=== PATIENT | male | born 1955 | race Caucasian/White ===

== ENCOUNTER 2021-06-09 19:23 | Inpatient (IN) | payer MEDICARE, OTHER ==
[~2021-06-09] VITALS: Ht 185.4 cm; Wt 93.0 kg
--- NOTE | 2021-06-09 21:00 | NUR ---
PATIENT IN ROOM A/OX3 CALM AND COOPERATIVE WITH NO DISTRESS NOTED. AMBULATORY WITH STEADY GAIT.
[2021-06-09] MEDS ORDERED: BENA1TAB18 PO (21:15)
[2021-06-09] MEDS ORDERED: DIVA250T4 PO (21:15)
[2021-06-09] MEDS ORDERED: OMEP20TA5 PO (21:15)
[2021-06-09] MEDS ORDERED: TRAV5DRO11 OP (21:15)
[2021-06-09] MEDS ORDERED: QUET50TA PO (21:15)
[2021-06-09] MEDS ORDERED: ASPI81TA31 PO (21:15)
--- NOTE | 2021-06-09 21:32 | NUR ---
MEDICALLY CLEARED BY DR PIERSON.
--- NOTE | 2021-06-09 22:37 | NUR ---
TRANSFERED TO [facility] VIA WHEELCHAIR WITH NO DISTRESS NOTED.
[2021-06-09] MEDS ORDERED: ACETAMINOPHEN 325 MG TABLET PO PRN (23:15)
[2021-06-09] MEDS ORDERED: LORAZEPAM 0.5 MG TABLET PO PRN (23:15)
[2021-06-09] MEDS ORDERED: MAGNESIUM HYDROXIDE 30 ML LIQUID UDC PO PRN (23:15)
[2021-06-09] MEDS ORDERED: MAG HYDROX/AL HYDROX/SIMETH 30 ML LIQUID UDC PO PRN (23:15)
[2021-06-09] MEDS ORDERED: BLOOD SUGAR DIAGNOSTIC 1 EACH STRIP VI ONE (23:15)
[2021-06-09] MEDS ORDERED: ZOLPIDEM 5 MG TABLET PO PRN (23:15)
[2021-06-09 23:32] VITALS: BP 124/62
--- NOTE | 2021-06-10 04:20 | NUR ---
2240--Received pt from ER in a safe and stable condition, alert/oriented x 3. Pt is on 5150 hold for GD. Pt denies any pain or discomfort at this time. Per hold, pt is here due to extreme emotional lability, decreased ability to meet his basic needs, increased agitation and having hallucinations. Upon assessment, pt is observed to be cooperative, have circumstantial thought process and flight of ideas. Pt denies SI, is able to contract for safety and interact appropriately with staff. Oriented pt to the unit and his room, assisted to a comfortable position. Pt's Rights Handbook and Advisement given. Safety precautions in place, q15 min checks done per unit protocol. Dr. Parkinson informed of admission; said he would do the med recon in the morning of 06/10/21. Will endorse accordingly and continue to monitor.
--- NOTE | 2021-06-10 06:10 | NUR ---
Daughter Uzma El informed of pt's admission to [facility]. Acknowledged information and agrees, no questions at this time. Expressed appreciation and said she would call the unit for any questions/concerns.
[2021-06-10 07:30] VITALS: BP 130/83
[2021-06-10 07:54] LABS: BILIRUBIN,TOTAL 0.7 mg/dL (0.2-1.0); CREATININE 1.3 mg/dL (0.6-1.3); POTASSIUM 4.1 mmol/L (3.5-5.1)
--- NOTE | 2021-06-10 09:15 | NUR ---
Firearms Report: Tray Setter completed and submitted a [employer] firearms report for 5150 grave disability certifications. A copy of report has been placed in patient chart.
--- NOTE | 2021-06-10 10:01 | NUR ---
Received pt. in bed fully AAOX4. vitals stable no c/of any discomfort fully ambulatory and follows commands. Will continue with care plan.
--- NOTE | 2021-06-10 10:35 | NUR ---
JAZZ Initial Discharge Plan: Patient resides at home [address] [place] [address]. Patient;s daughter, Ying El ([phone]) is also his DPOA is very involved in the patient's care. JAZZ will continue to work with patient, family, and MD to ensure a safe and proper discharge plan.
--- NOTE | 2021-06-10 10:35 | NUR ---
JAZZ Family Contact: JAZZ spoke with patient's daughter, Ying El ([phone]) who is also his DPOA is very involved in the patient's care. Ying stated that she is visiting assisted living facilities and custodial facilities for potential placement options for the patient. Ying stated the patient has been staying with her in her home in [place] for the past month as she has been helping manage his medications and doctor's visits. SW offered possible SNF facilities however discussed that they may not be in [facility] as they do not have any psych focused facilities. Ying is understanding and agreeable with this plan.
[2021-06-10] MEDS: ASPIRIN 81 MG TAB.CHEW PO SCH (11:28)
[2021-06-10 13:24] LABS: HEMATOCRIT 43.5 % (36.7-47.1); MEAN CORPUSCULAR HEMOGLOBIN 30.2 uug (23.8-33.4); PLATELET COUNT (AUTO) 127 K/uL (152-348)
[2021-06-10 16:00] VITALS: BP 113/65
[2021-06-10] MEDS: DIVALPROEX 250 MG TABLET.DR PO SCH (17:41)
[2021-06-10] MEDS: RIVAROXABAN 10 MG TABLET PO SCH (17:42)
--- NOTE | 2021-06-10 19:05 | NUR ---
left pt. on mikhail-chair. AAox1-2. vitals stable, no c/of pain. No aggressive behavior complain with meds.
[2021-06-10 20:14] VITALS: BP 117/68
[2021-06-10] MEDS: QUETIAPINE FUMARATE 25 MG TABLET PO SCH (20:21)
[2021-06-11] MEDS: PANTOPRAZOLE SODIUM 40 MG TABLET.DR PO SCH (06:36)
[2021-06-11 07:30] VITALS: BP 125/64
[2021-06-11] MEDS: DIVALPROEX 250 MG TABLET.DR PO SCH ×2 (08:42→17:28)
[2021-06-11] MEDS: ASPIRIN 81 MG TAB.CHEW PO SCH (08:42)
--- NOTE | 2021-06-11 15:41 | NUR ---
Gps/Respiratory Care Technician- Patient upset r/t copy of his 14 day hold, not explained to him, sludge control attendant Parvin , explained to patient ,verbalized understanding. Offered the need to shower , and was able to give own shower, somewhat needy , speech loud and angry tone of voice , demanding his needs.
[2021-06-11 16:00] VITALS: BP 131/61
[2021-06-11] MEDS: RIVAROXABAN 10 MG TABLET PO SCH (17:29)
--- NOTE | 2021-06-11 18:05 | NUR ---
Gps/Cleat Thrower- Irritability noted, wants his own way , reviewed pm meds. wants to take it with cranberry juice, telling staff to go and get it right away so he can take his medications .
[2021-06-11 20:00] VITALS: BP 119/68
[2021-06-11] MEDS: ATORVASTATIN 40 MG TABLET PO SCH (20:42)
[2021-06-11] MEDS: QUETIAPINE FUMARATE 25 MG TABLET PO SCH ×3 (20:42→20:46)
[2021-06-11] MEDS ORDERED: ATORVASTATIN 20 MG TABLET PO SCH ×2 (21:00)
--- NOTE | 2021-06-12 00:07 | NUR ---
RECEIVED PATIENT IN BED AWAKE.NOTED ISOLATIVE,WITHDRAWN AND MOOD LABILE. NOTED RESPONDING TO INTERNAL STIMULI HE KEPT BOTH HANDS ON HIS EARS FOR A WHILE.DISPLAYED SOME PARANOIA HE TOLD ME TO GET HIM CRANBERRY JUICE THAT HAS NOT BEEN "TAMPERED WITH OR POISONED'. HE LATER CAME RUNNING OUT OF HIS ROOM 2X TO THE ACTIVITY ROOM AND SAID" I WANT TO COOL DOWN". REFUSED HIS MEDICATIONS. RISK AND BENEFITS EXPLAINED X 3.VISUAL CHECKS MADE ON HIM FOR SAFETY. WILL CONTINUE TO MONITOR.
[2021-06-12] MEDS: PANTOPRAZOLE SODIUM 40 MG TABLET.DR PO SCH (06:15)
--- NOTE | 2021-06-12 06:17 | NUR ---
HE SLEPT FOR 7:15 HOURS. WOKE UP THIS MORNING CRYING AND APOLOGIZING FOR NOT TAKING HIS MEDICATIONS YESTERDAY.SPOKE ABOUT RISK AND BENEFITS.EXPRESSED UNDERSTANDING.
[2021-06-12 07:52] VITALS: BP 128/80
[2021-06-12] MEDS: DIVALPROEX 250 MG TABLET.DR PO SCH ×2 (09:10→17:39)
[2021-06-12] MEDS: ASPIRIN 81 MG TAB.CHEW PO SCH (09:10)
[2021-06-12] MEDS: RIVAROXABAN 10 MG TABLET PO SCH (17:49)
[2021-06-12 20:15] VITALS: BP 114/69
[2021-06-12] MEDS: ATORVASTATIN 40 MG TABLET PO SCH (20:41)
[2021-06-12] MEDS: QUETIAPINE FUMARATE 25 MG TABLET PO SCH (20:42)
[2021-06-13] MEDS: PANTOPRAZOLE SODIUM 40 MG TABLET.DR PO SCH (07:13)
[2021-06-13 07:34] VITALS: BP 116/69
[2021-06-13] MEDS: DIVALPROEX 250 MG TABLET.DR PO SCH ×2 (08:41→17:07)
[2021-06-13] MEDS: ASPIRIN 81 MG TAB.CHEW PO SCH (08:41)
[2021-06-13 16:43] VITALS: BP 107/65
[2021-06-13] MEDS: RIVAROXABAN 10 MG TABLET PO SCH (17:06)
[2021-06-13 20:00] VITALS: BP 116/60
[2021-06-13] MEDS: ATORVASTATIN 40 MG TABLET PO SCH (20:23)
[2021-06-13] MEDS: QUETIAPINE FUMARATE 25 MG TABLET PO SCH (20:24)
--- NOTE | 2021-06-13 21:30 | NUR ---
Received patient in his room. He is noted A/O x 1. Noted labile and unpredictable, with flight of ideas, pt does not make any sense. He initially took all his QHS medications but spited some out. He stated, "the water is dirty, i need more water". then he ran to the bathroom and sat in the toilet. patient was informed of the importance of complying with medication regiment to improved symptoms. he is reassured for his safety, safety an fall precaution in place. V/S stable, will continue to monitor.
[2021-06-14] MEDS: PANTOPRAZOLE SODIUM 40 MG TABLET.DR PO SCH (06:48)
[2021-06-14 07:30] VITALS: BP 120/77
[2021-06-14] MEDS: DIVALPROEX 250 MG TABLET.DR PO SCH ×2 (09:00→16:52)
[2021-06-14] MEDS: ASPIRIN 81 MG TAB.CHEW PO SCH (09:00)
--- NOTE | 2021-06-14 11:53 | NUR ---
Gps/Cocoa Press Operator- Showered self after set up, needed prompting and redirections, noted irritability when redirected, angry affect walks around briskly , body language stiff . staring , blunt answers . Monitor behavior.
[2021-06-14 16:00] VITALS: BP 114/63
[2021-06-14] MEDS: RIVAROXABAN 10 MG TABLET PO SCH (16:54)
[2021-06-14 19:58] VITALS: BP 118/64
[2021-06-14] MEDS: QUETIAPINE FUMARATE 25 MG TABLET PO SCH (20:16)
[2021-06-14] MEDS: ATORVASTATIN 40 MG TABLET PO SCH (20:17)
--- NOTE | 2021-06-14 20:23 | NUR ---
Received patient in his room in bed. he is noted awake A/O x 1. He continue suspicious, unpredictable, responding to internal stimuli, tangental, disorganized speech, Upon interview, he stated, "I feel fabulate. My daughter is coming right now to bring my medication. I don't hear voices, I have never heard voices. this is a joke". patient is reassured for his safety. safety and fall precaution in place. He was offered PO fluids and snacks. will continue to monitor closely.
[2021-06-15] MEDS: PANTOPRAZOLE SODIUM 40 MG TABLET.DR PO SCH (06:42)
--- NOTE | 2021-06-15 07:07 | NUR ---
PATIENT SLEPT FOR APPROX 7.30 HRS THROUGH THE NIGHT. HE WAS COMPLIANT WITH PROTONIX THIS MORNING. WILL CONTINUE TO MONITOR.
--- NOTE | 2021-06-15 07:15 | NUR ---
NURSE REPORT Obtained report from night nurse Rosanne and this nurse assumed care of patient. Received patient asleep at beginning of shift. No sxs of pain or distress. VSS. Afeb.
[2021-06-15 07:30] VITALS: BP 117/66
[2021-06-15] MEDS: DIVALPROEX 250 MG TABLET.DR PO SCH ×3 (09:17→17:16)
[2021-06-15] MEDS: ASPIRIN 81 MG TAB.CHEW PO SCH (09:17)
--- NOTE | 2021-06-15 12:00 | NUR ---
NURSE NOTES VSS. AFEB. MEALS TAKEN 75% AND 100% FOR LUNCH AND DINNER. EAT MEALS IN ROOM. NO C/O PAIN OR DISCOMFORT.
--- NOTE | 2021-06-15 12:09 | NUR ---
SPOKE WITH DR. SIDDIQI @[phone] FOR CONSULT PER REQUESTED, PER DR. SIDDIQI HE WILL SEE PATIENT TODAY.
--- NOTE | 2021-06-15 13:14 | NUR ---
JAZZ Family Contact: SW spoke with patient's daughter, Ying El ([phone]) and discussed updated treatment and discharge plan.
--- NOTE | 2021-06-15 14:54 | NUR ---
Court Hearing: Patient's court hearing for 5370 was today and it was upheld for GD.
[2021-06-15 15:07] VITALS: BP 115/65
[2021-06-15] MEDS: RIVAROXABAN 10 MG TABLET PO SCH ×2 (17:16→17:23)
--- NOTE | 2021-06-15 18:00 | NUR ---
NURSES CARE Patient might be pocketing his med, or act like he is taking his med. He c/o that the water is dirty and at first refused 1700 meds, but this nurse tried again and she says I need more water. He brought the cup of meds into the bathroom, and this nurse wasn't able to see him swallow the meds, since bathroom door closed. Need to monitor patient when he takes meds.
--- NOTE | 2021-06-15 19:15 | NUR ---
NURSE REPORT AND ENDORSEMENT Report given to night nurse DUGLAS to assume care of patient. Kardex given and all questions asked. To monitor patient if he is taking his meds correctly. Marcella Cisneros RN
[2021-06-15 20:04] VITALS: BP 112/62
[2021-06-15] MEDS: ATORVASTATIN 40 MG TABLET PO SCH (20:08)
[2021-06-15] MEDS ORDERED: QUETIAPINE FUMARATE 100 MG TABLET PO SCH (21:00)
[2021-06-15] MEDS ORDERED: QUETIAPINE FUMARATE 25 MG TABLET PO SCH (21:00)
[2021-06-16] MEDS: PANTOPRAZOLE SODIUM 40 MG TABLET.DR PO SCH (06:29)
[2021-06-16 07:30] VITALS: BP 128/72
[2021-06-16] MEDS: ASPIRIN 81 MG TAB.CHEW PO SCH (08:29)
[2021-06-16] MEDS: DIVALPROEX 250 MG TABLET.DR PO SCH ×3 (08:29→19:53)
[2021-06-16] MEDS: LORAZEPAM 1 MG TABLET PO PRN ×3 (08:59→19:47)
[2021-06-16] MEDS: OLANZAPINE 5 MG TABLET PO SCH ×2 (12:28→20:23)
--- NOTE | 2021-06-16 15:25 | NUR ---
JAZZ SNF Referral: JAZZ faxed patient's referral packet to [facility] [address] [place] [address] attention to Nancy. Patient is accepted for placement.
[2021-06-16 15:58] VITALS: BP 90/48
[2021-06-16] MEDS: RIVAROXABAN 10 MG TABLET PO SCH ×2 (17:01→18:00)
--- NOTE | 2021-06-16 18:16 | NUR ---
patient is pacing in hallway agitated hitting the windows, hearing voice unable to follow re-direction ,Ativan 1 mg given as ordered at 0859 am. refused all 5 pm medication .
[2021-06-16 20:16] VITALS: BP 118/74
[2021-06-16] MEDS: ATORVASTATIN 40 MG TABLET PO SCH (20:23)
[2021-06-17] MEDS: LORAZEPAM 1 MG TABLET PO PRN ×2 (06:13→20:02)
[2021-06-17] MEDS: PANTOPRAZOLE SODIUM 40 MG TABLET.DR PO SCH (06:13)
[2021-06-17 07:53] VITALS: BP 120/65
--- NOTE | 2021-06-17 08:00 | NUR ---
NURSE REPORT Report obtained from DUGLAS at 0715 and this nurse assumed care of patient. Received pateint asleep without any sxs of pain or distress.
[2021-06-17] MEDS: ASPIRIN 81 MG TAB.CHEW PO SCH (09:34)
[2021-06-17] MEDS: OLANZAPINE 5 MG TABLET PO SCH ×2 (09:34→20:49)
[2021-06-17] MEDS: DIVALPROEX 250 MG TABLET.DR PO SCH ×3 (09:34→17:38)
--- NOTE | 2021-06-17 10:00 | NUR ---
NURSE CARE When giving meds to patient she would c/o that he didn't get his Omeprazole today and that nurses just throwing stuff on the ground. He refused to take Depakote 2 tabs, and so he took 1 pill. This nurse checked for cheeking of meds and had him open his mouth to see if pills was swallowed.
[2021-06-17 15:41] VITALS: BP 120/63
[2021-06-17] MEDS: RIVAROXABAN 10 MG TABLET PO SCH (17:42)
--- NOTE | 2021-06-17 18:00 | NUR ---
NURSE CARE patient refused to take 2 tab of Depakote. Patient checked for cheeking of med. He stated that the ordered these same med and that his daughter ordered these meds as a Pharmacist. . This nurse explained that this place is not the OR or [facility], but it is [facility].
--- NOTE | 2021-06-17 19:15 | NUR ---
NURSE REPORT AND ENDORSEMENT Report given to night nurse DUGLAS to assume care of patient. Kardex given. VSS. Afeb. Patient refused to take Depakote 2 tabs, and so needs to make sure he isn't cheeking his meds Marcella Cisneros RN
[2021-06-17] MEDS: ATORVASTATIN 40 MG TABLET PO SCH (20:49)
[2021-06-17 21:12] VITALS: BP 116/61
[2021-06-18] MEDS: PANTOPRAZOLE SODIUM 40 MG TABLET.DR PO SCH (06:12)
--- NOTE | 2021-06-18 06:38 | NUR ---
GPS: Pt.slept 8 hrs last night. No increased agitation noted. Re-directed prn. Will continue to monitor behavior.
[2021-06-18 07:30] VITALS: BP 133/57
--- NOTE | 2021-06-18 08:00 | NUR ---
NURSE REPORT Report obtained from night nurse DUGLAS and this nurse assumed care of patient. Received patient asleep at beginning of dayshift. No sxs of pain or distress. VSS. Afeb. BP 133/69.
[2021-06-18] MEDS: ASPIRIN 81 MG TAB.CHEW PO SCH (08:55)
[2021-06-18] MEDS: OLANZAPINE 5 MG TABLET PO SCH ×2 (08:55→20:18)
[2021-06-18] MEDS: DIVALPROEX 250 MG TABLET.DR PO SCH ×2 (08:55→17:37)
--- NOTE | 2021-06-18 10:00 | NUR ---
NURSE CARE AM meds given and patient will say, "I am bnot supposed to get 2 Aspirin, cause it will cause me to have bleeding. Instructed patient that he only got 1 Aspirin.
--- NOTE | 2021-06-18 12:00 | NUR ---
NURSE CARE LUNCH REFUSED BY PATIENT. NO C/O PAIN OR DISCOMFORT.
[2021-06-18 16:00] VITALS: BP 118/65
--- NOTE | 2021-06-18 17:00 | NUR ---
NURSE NOTES When patient taking med, he would say the Xarelto should be a white pill. Why he get 2 pills. Explained that each pill is 10 mg and 2 of them is 20 mg. Refused to take 2 Depakote, but he swallowed all his pills. No cheeking of meds.
[2021-06-18] MEDS: RIVAROXABAN 10 MG TABLET PO SCH (17:39)
--- NOTE | 2021-06-18 18:57 | NUR ---
NURSE REPORT Report will be given to night nurse at 1900. Patient stable condition. VSS. Afeb. Meals taken fair. Need to watch patient take meds. Has bizarre behavior and thinking.
[2021-06-18 20:00] VITALS: BP 121/63
[2021-06-18] MEDS: ATORVASTATIN 40 MG TABLET PO SCH (20:18)
[2021-06-19] MEDS: PANTOPRAZOLE SODIUM 40 MG TABLET.DR PO SCH (06:35)
[2021-06-19 07:30] VITALS: BP 118/64
--- NOTE | 2021-06-19 08:22 | NUR ---
SW Family Contact: SW spoke with patient's daughter, Ying El ([phone]) and informed of patient's discharge plan to [facility]. Ying is agreeable with this plan.
[2021-06-19] MEDS: ASPIRIN 81 MG TAB.CHEW PO SCH (09:00)
[2021-06-19] MEDS: DIVALPROEX 500 MG TABLET.DR PO SCH ×2 (09:00→17:13)
[2021-06-19] MEDS: OLANZAPINE 5 MG TABLET PO SCH ×2 (09:00→20:07)
--- NOTE | 2021-06-19 14:20 | NUR ---
Gps/Java Software- Patient's son from [place] called, verbalized concerns , claimed his sister called , and claimed patient has not been getting his routine medications from his home, [place]. eye gtts. since he had eye procedure, informed will. double check medication records
[2021-06-19 16:09] VITALS: BP 125/71
[2021-06-19] MEDS: RIVAROXABAN 10 MG TABLET PO SCH (17:15)
[2021-06-19] MEDS: ATORVASTATIN 40 MG TABLET PO SCH (20:07)
[2021-06-19 20:16] VITALS: BP 110/70
[2021-06-20] MEDS: PANTOPRAZOLE SODIUM 40 MG TABLET.DR PO SCH (06:10)
[2021-06-20 08:04] VITALS: BP 119/55
[2021-06-20] MEDS: DIVALPROEX 500 MG TABLET.DR PO SCH ×2 (08:32→17:02)
[2021-06-20] MEDS: LORAZEPAM 1 MG TABLET PO PRN (08:32)
[2021-06-20] MEDS: OLANZAPINE 5 MG TABLET PO SCH ×2 (08:33→20:55)
[2021-06-20] MEDS: ASPIRIN 81 MG TAB.CHEW PO SCH (08:33)
[2021-06-20] MEDS: DORZOLAMIDE 2% OPHT DROP 10 ML BOTTLE EACHEYE SCH ×3 (13:00→20:59)
[2021-06-20 16:45] VITALS: BP 111/61
[2021-06-20] MEDS: RIVAROXABAN 10 MG TABLET PO SCH (17:03)
[2021-06-20 20:00] VITALS: BP 98/55
[2021-06-20 20:45] VITALS: BP 108/53
[2021-06-20] MEDS: ATORVASTATIN 40 MG TABLET PO SCH (20:55)
[2021-06-21] MEDS: PANTOPRAZOLE SODIUM 40 MG TABLET.DR PO SCH (06:22)
[2021-06-21] MEDS: DIVALPROEX 500 MG TABLET.DR PO SCH ×2 (08:08→16:26)
[2021-06-21] MEDS: ASPIRIN 81 MG TAB.CHEW PO SCH (08:08)
[2021-06-21] MEDS: OLANZAPINE 5 MG TABLET PO SCH ×2 (08:08→20:19)
[2021-06-21 08:12] VITALS: BP 121/48
[2021-06-21 16:18] VITALS: BP 105/62
[2021-06-21] MEDS: RIVAROXABAN 10 MG TABLET PO SCH (17:17)
[2021-06-21 20:07] VITALS: BP 102/53
[2021-06-21] MEDS: ATORVASTATIN 40 MG TABLET PO SCH (20:19)
[2021-06-21] MEDS: DORZOLAMIDE 2% OPHT DROP 10 ML BOTTLE EACHEYE SCH (20:20)
[2021-06-22] MEDS: PANTOPRAZOLE SODIUM 40 MG TABLET.DR PO SCH (06:51)
[2021-06-22 08:00] VITALS: BP 103/58
[2021-06-22] MEDS: DIVALPROEX 500 MG TABLET.DR PO SCH (08:16)
[2021-06-22] MEDS: ASPIRIN 81 MG TAB.CHEW PO SCH (08:16)
[2021-06-22] MEDS: OLANZAPINE 5 MG TABLET PO SCH (08:16)
--- NOTE | 2021-06-22 12:31 | NUR ---
Discharge Note: Patient will be discharged to [facility]3] [address] [facility], [address] ([phone]). Patient berry picker is arranged by the [facility] transportation for today at 11:00am. Youth Manager spoke with Nancy ([phone]), director of brand marketing, who stated patient accepted at facility today. Patient is alert and oriented x2 and is not able to plan for self-care at this time but is willing to accept care provided for him at the facility. Patient denies any suicidal or homicidal ideation. Patient is aware and agreeable with discharge plans. Patient presents with appropriate mood and congruent affect. Patient will follow up with Dr. Ellis (Tank Cooper) and Dr. Rodriguez (Psychiatrist) at [facility]3]. Patients daughter, Ying El ([phone]) is aware and agreeable with discharge plan. Addendum: 06/22/21 at 1232 by LOVELY OMER building construction superintendent time at 12:30PM.
--- NOTE | 2021-06-22 13:45 | NUR ---
GPS: Nursing Notes: Discharge Notes: Patient is awake and responding to his name, cooperative with nursing care, compliant with his medications, following staff directions, denies SI/HI, denies AH/VH, denies pain or discomfort, denies SOB, discharge to [facility] at [address] [place] [address] , report given to facility's nurse - LUCY Kwon printing and stamping supervisor, transported to [facility] via facility's transportation. Patient will follow up with Dr. Ellis (Ct Technician) and Dr. Rodriguez (Psychiatrist) for aftercare at the facility. Patients daughter, Ying El ([phone]) informed of discharge by social and political studies professor.
== END 2021-06-22 13:45 | DRG 885 ==
LOC: ER 19:25 → GPS 22:27
PROVIDERS: ADMIT Psychiatry & Neurology Psychiatry; ATTEND Nurse Practitioner Acute Care
DX: F29 Unspecified psychosis not due to a substance or known physiological condition (principal); N17.9 Acute kidney failure, unspecified; G93.40 Encephalopathy, unspecified; F03.91 Unspecified dementia, unspecified severity, with behavioral disturbance; E78.5 Hyperlipidemia, unspecified; Z79.01 Long term (current) use of anticoagulants; Z95.2 Presence of prosthetic heart valve; E86.1 Hypovolemia; G47.33 Obstructive sleep apnea (adult) (pediatric); I10 Essential (primary) hypertension; K21.9 Gastro-esophageal reflux disease without esophagitis; Z20.822 Contact with and (suspected) exposure to COVID-19; I35.0 Nonrheumatic aortic (valve) stenosis; I48.91 Unspecified atrial fibrillation; H40.9 Unspecified glaucoma; F31.9 Bipolar disorder, unspecified
CPT/HCPCS: 36415; 70030-TC; 80164; 85025; 93005; A4663; J3490